=== PATIENT | male | born 1940 | race Caucasian/White ===

== ENCOUNTER 2017-03-17 17:31 | Emergency (ER) | payer OTHER ==
[2017-03-17 17:42] VITALS: BMI 31.0
--- NOTE | 2017-03-17 17:44 | DR.CP ---
HPI - Time Seen Time seen: 17:40 - PCP Primary Care Physician: DR PERES - Complaint Chief Complaint Doctor Comments: Patient with a history of chest pain and multiple stents. He states that he had an abnormal stress test one to two weeks ago. He is going to cath when his hemoglobin is adequate. He is followed by Dr Sheikh. He reports that he had mid sternal chest pain with pain radiating down left arm. There was no diaphoresis. Chief Complaint:: PATIENT STATED HE WAS AT [employer] AND STARTED HAVING CHEST PAIN. LAST NH WAS LAST MONTH. HEART CATH COMING UP IN A COUPLE OF WEEKS. DR SHEIKH CARDIOLIOGIST IN [place]. - Source History Provided: Patient - Mode of Arrival Mode of Arrival: EMS - Timing Onset of Chief Complaint: 03/17/17 PMH - PMH Past Medical History: Yes Past Medical History: Hypertension Past Surgical History: Yes Surgical History: Abdominal Surgery, Angioplasty/Stents Past Surgical History Comment: 1/3 OF HIS LIVER REMOVED, LOST IS RIGHT EYE IN A WRECK. - Family History History of Family Medical Conditions: No - Social History Does patient currently use any type of tobacco product: No Have you used tobacco products in the last 12 months: No Type of Tobacco Use: None Does any household member use tobacco: No Alcohol Use: None Do you use any recreational Drugs:: No Lives With: Family Lives Where: Home - infectious screening In the last 2 months have you had wt loss of >10#?: NO Have you had fever, night sweats or hemotysis?: No Have you traveled outside the country in the last 6 months?: No Isolation: Standard ROS - Review of Systems Eyes: No Symptoms Reported ENTM: No Symptoms Reported Respiratoy: No Symptoms Reported Cardiovascular: See HPI, Chest Pain Gastrointestinal/Abdominal: No Symptoms Reported Genitourinary: No Symptoms Reported Neurological: No Symptoms Reported Musculoskeletal: No Symptoms Reported Integumentary: No Symptoms Reported Hematologic/Lymphatic: No Symptoms Reported Endocrine: No Symptoms Reported Psychiatric: No Symptoms Reported All Other Systems: Reviewed and Negative PE - Vitals Vitals: Temperature 98.7 F Pulse Rate 71 Respiratory Rate 16 Blood Pressure 135/65 O2 Sat by Pulse Oximetry 99 - General Limitations: No Limitations General Appearance: Alert, In No Apparent Distress - Head Head Exam: Normal Inspection, Atraumatic - Eyes Eye exam: Normal Appearance, PERRL, EOMI - ENT ENT Exam: Normal Exam - Chest Chest Inspection: Normal Inspection, Symmetric Chest Wall Rise - Respiratory Respiratory Exam: Normal Lung Sounds Bilat Respiratory Exam: Bilateral Clear to Auscultation - Cardiovascular Cardiovascular Exam: Regular Rate, Normal Rhythm Pulse: Normal, Radial Edema: Normal - Abdominal Exam Abdominal Exam: Normal Inspection, Normal Bowel Sounds Abdominal Tenderness: negative: RUQ, RLQ, LUQ, LLQ, Epigastrium, Suprapubic, Diffuse, Mild, Moderate, Severe, Other - Extremities Extremities Exam: Normal Inspection, Full ROM - Back Back Exam: Normal Inspection - Neurologic Neurological Exam: Alert, Oriented X3, CN II-XII Intact - Psychiatric Psychiatric Exam: Normal Affect - Skin Skin Exam: Warm, Dry, Intact MDM - Differential Diagnosis Differential Diagnosis: Angina Course - Reevaluation 1st: Improved - Education/Counseling Education/Counseling: Patient Educated On: Treatment, Prognosis, Needs for Follow Up ROR - Labs Reviewed Result Diagrams: 03/17/17 17:40 03/17/17 17:40 Laboratory: WBC 8.9 X10^3/uL (3.6-10.0) 03/17/17 17:40 RBC 4.57 X10^6/uL (4.7-6.0) L 03/17/17 17:40 Hgb 12.1 g/dL (13.5-18.0) L 03/17/17 17:40 Hct 36.8 % (42.0-54.0) L 03/17/17 17:40 MCV 80.6 fL (80.0-100.0) 03/17/17 17:40 MCH 26.4 pg (27.0-34.0) L 03/17/17 17:40 MCHC 32.7 g/dL (33.0-35.0) L 03/17/17 17:40 RDW 18.3 % (11.6-16.5) H 03/17/17 17:40 Plt Count 216 X10^3/uL (150.0-450.0) 03/17/17 17:40 MPV 7.7 fL (7.4-11.0) 03/17/17 17:40 Neut % 62.8 % (42.0-75.0) 03/17/17 17:40 Lymph % 21.2 % (21.0-51.0) 03/17/17 17:40 Blount % 12.0 % (0.0-13.0) 03/17/17 17:40 Eos % 3.6 % (0.9-2.9) H 03/17/17 17:40 Baso % 0.4 % (0.2-1.0) 03/17/17 17:40 Neut # 5.6 x10^3/uL (2.2-4.8) H 03/17/17 17:40 Lymph # 1.9 X10^3/uL (1.3-2.9) 03/17/17 17:40 Blount # 1.1 x10^3/uL (0.3-0.8) H 03/17/17 17:40 Eos # 0.3 x10^3/uL (0.0-0.2) H 03/17/17 17:40 Baso # 0.0 X10^3/uL (0.0-0.1) 03/17/17 17:40 Absolute Nucleated RBC 0.1 /100WBC 03/17/17 17:40 INR Target Range - 03/17/17 17:40 INR 1.03 (0.8-1.3) 03/17/17 17:40 PTT 26.1 SECONDS (22.9-36.5) 03/17/17 17:40 PTT Comment - 03/17/17 17:40 D-Dimer 430 ng/mL (0-400) H* 03/17/17 17:40 Sodium 143 mmol/L (136-145) 03/17/17 17:40 Corrected Sodium 144 mmol/L (136-145) 03/17/17 17:40 Potassium 3.4 mmol/L (3.5-5.1) L 03/17/17 17:40 Chloride 107 mmol/L (98-107) 03/17/17 17:40 Carbon Dioxide 28.5 mmol/L (21-32) 03/17/17 17:40 BUN 19 mg/dL (7-18) H 03/17/17 17:40 Creatinine 1.37 mg/dL (0.70-1.30) H 03/17/17 17:40 Est GFR (MDRD) Af Amer > 60 (>60) 03/17/17 17:40 Est GFR (MDRD) Non-Af 54 (>60) L 03/17/17 17:40 Glucose 124 mg/dL (65-99) H 03/17/17 17:40 Calcium 8.9 mg/dL (8.5-10.1) 03/17/17 17:40 Corrected Calcium 9.5 mg/dL (8.5-10.1) 03/17/17 17:40 Magnesium 2.1 mg/dL (1.7-2.9) 03/17/17 17:40 Total Bilirubin 0.40 mg/dL (0.2-1.0) 03/17/17 17:40 AST 16 Units/L (15-37) 03/17/17 17:40 ALT 17 Units/L (12-78) 03/17/17 17:40 Alkaline Phosphatase 111 Units/L (46-116) 03/17/17 17:40 Creatine Kinase 144 Units/L (39-308) 03/17/17 17:40 CK-MB (CK-2) < 1.0 ng/mL (0-4.0) 03/17/17 17:40 CK/CKMB % Calc 0.7 % (<4) 03/17/17 17:40 Troponin I < 0.02 ng/mL (0-1.5) 03/17/17 17:40 Total Protein 6.4 g/dL (6.4-8.2) 03/17/17 17:40 Albumin 3.2 g/dL (3.4-5.0) L 03/17/17 17:40 Globulin 3.2 g/dL (2.5-4.5) 03/17/17 17:40 Albumin/Globulin Ratio 1.0 Ratio (1.1-2.1) L 03/17/17 17:40 - XRAY XRAY Interpreted by: Radiologist (Chest: Questionable small right plleural effusion vs pleural thickening. Recommend short term follow up) - Diagnosis Discharge Problem: Angina pectoris - Discharge Plan Condition: Stable - Follow ups/Referrals Follow ups/Referrals: NFD,None [Primary Care Provider] - 3 days - Instructions
[2017-03-17 17:49] LABS: BASOPHILS % (AUTO) 0.4 % (0.2-1.0); EOSINOPHILS # (AUTO) 0.3 x10^3/uL (0.0-0.2); EOSINOPHILS % (AUTO) 3.6 % (0.9-2.9); HEMATOCRIT 36.8 % (42.0-54.0); HEMOGLOBIN 12.1 g/dL (13.5-18.0); LYMPHOCYTES # (AUTO) 1.9 X10^3/uL (1.3-2.9); LYMPHOCYTES % (AUTO) 21.2 % (21.0-51.0); MEAN CORPUSCULAR HEMOGLOBIN 26.4 pg (27.0-34.0); MEAN CORPUSCULAR HGB CONC 32.7 g/dL (33.0-35.0); MEAN CORPUSCULAR VOLUME 80.6 fL (80.0-100.0); MEAN PLATELET VOLUME 7.7 fL (7.4-11.0); MONOCYTES # (AUTO) 1.1 x10^3/uL (0.3-0.8); NEUTROPHILS # (AUTO) 5.6 x10^3/uL (2.2-4.8); NEUTROPHILS % (AUTO) 62.8 % (42.0-75.0); PLATELET COUNT 216 X10^3/uL (150.0-450.0); RED BLOOD COUNT 4.57 X10^6/uL (4.7-6.0); RED CELL DISTRIBUTION WIDTH 18.3 % (11.6-16.5); WHITE BLOOD COUNT 8.9 X10^3/uL (3.6-10.0)
--- NOTE | 2017-03-17 17:51 | RAD ---
Indication: Pain. Exam: Portable chest Comparison: None. Findings: The heart is normal. The pulmonary vessels are normal. There is mild blunting of the right costophrenic angle. No consolidation is seen . The bones are intact. Impression: Mild cardiomegaly. Questionable small right pleural effusion vs pleural thickening. Recommend short-term follow-up. Reported By:
[2017-03-17 18:05] LABS: BLOOD UREA NITROGEN 19 mg/dL (7-18); CALCIUM 8.9 mg/dL (8.5-10.1); CARBON DIOXIDE 28.5 mmol/L (21-32); CHLORIDE 107 mmol/L (98-107); COR NA(FOR HYPERGLY) 144 mmol/L (136-145); CREATININE 1.37 mg/dL (0.70-1.30); SODIUM 143 mmol/L (136-145); TROPONIN I < 0.02 ng/mL (0-1.5); eGFR BLACK RACES > 60 (>60); eGFR NON BLACK RACES 54 (>60)
[2017-03-17 18:09] LABS: ALANINE AMINOTRANSFERASE 17 Units/L (12-78); ALBUMIN 3.2 g/dL (3.4-5.0); ALKALINE PHOSPHATASE 111 Units/L (46-116); ASPARTATE AMINO TRANSFERASE 16 Units/L (15-37); COR CA(FOR HYPOALB) 9.5 mg/dL (8.5-10.1); CREATINE KINASE 144 Units/L (39-308); CREATINE KINASE MB < 1.0 ng/mL (0-4.0); MAGNESIUM 2.1 mg/dL (1.7-2.9); TOTAL PROTEIN 6.4 g/dL (6.4-8.2)
[2017-03-17 18:12] LABS: CKMB % 0.7 % (<4)
[2017-03-17 19:02] VITALS: BP 125/73
== END 2017-03-17 19:03 | disposition home or self-care (01) ==
LOC: ER 17:31
DX: I20.9 Angina pectoris, unspecified (principal); R07.89 Other chest pain; I51.7 Cardiomegaly
CPT/HCPCS: 36415; 71010; 80053; 82550; 82553; 83735; 84484; 85025; 85378; 85610; 85730; 93005; 93010; 96365; 99283